=== PATIENT | male | born 1950 | race Two or more races ===

== ENCOUNTER 2024-09-24 09:25 | Emergency (ER) | payer OTHER, SELFPAY ==
--- NOTE | 2024-09-24 | XR_ITS ---
Examination: MRI brain without intravenous contrast. Date and time of exam: September 24, 2024 1320 hours INDICATIONS: Dizziness beginning 8:00 AM this morning Technique: Multiple axial and sagittal images of the brain obtained. Siemens high-resolution 1.5 Blessing short bore scanners utilized. Sagittal sections, T1-weighted, TR 500, TE 14, are performed. Axial sections proton-density and T2-weighted have been obtained. Inversion recovery axial images, TR 9, 260, TE 111, TI 2500. Diffusion weighted images, axial sections, TR 4800, TE 128, B value 1000 Axial sections, ADC map, TR 4800, TE 128 Findings: Enlargement of the sella turcica is not present. The optic chiasm and infundibular are not remarkable. Prepontine and interpeduncular cisterns are not enlarged. There is no localized enlargement of the medulla or amalia. Fourth ventricle and cerebellar tonsils appear normal in position. No subacute area of hemorrhage density is seen. Mass in the cerebellopontine angle region is not evident. Globes symmetrical. Orbital musculature including medial lateral rectus muscles do not exhibit abnormality. Diffusion-weighted images demonstrate no focus of restricted diffusion. Increased white matter signal mild Mass effect upon the ventricular system is not identified. Impression: Negative for acute hemorrhage mass effect or midline shift No acute infarct Mild chronic microvascular white matter change
[2024-09-24 09:27] VITALS: BP 174/96; PULSE 64; RESP 19; TEMP 36.5; O2SAT 95; BMI 29.0
--- NOTE | 2024-09-24 09:33 | EKG_ITS ---
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
[2024-09-24 09:35] VITALS: BP 171/93; PULSE 68; RESP 14; O2SAT 99
--- NOTE | 2024-09-24 09:35 | PC.NURSE ---
SUDDEN ONSET DIZZINESS AFTER EATING AT 0800. WENT TO PMD APPOINTMENT AND PMD CALLED 911
[2024-09-24 09:37] VITALS: PULSE 64; O2SAT 98
--- NOTE | 2024-09-24 12:05 | EDNOTE_ITS ---
ED General RME/HPI General Chief complaint: Dizziness Stated complaint: DIZZINESS SINCE 0800 WHEN MOVES Arrival date/time: 09/24/24 09:25 RME / HPI RME / HPI narrative: A 74-year-old male with past medical history of hypertension, diabetes type II gli-pcgxhtf-uwshnpzyy on metformin, and hyperlipidemia presented in the ED of [facility] with chief complaint of dizziness since 8:00 am 09/24/2024. His dizziness started when he attempted to get up from his living room chair. He felt himself spinning. However, denies that the room is spinning. He said that he went to see his PCP who recommended him to come into the ED for further management. No tinnitus was noted. Patient also endorses nausea but denies any vomiting. Patient states that he has a dry cough, but he feels it is associated with his lisinopril. Every time he takes Lisinopril, his cough starts. Patient denies headache, fever, chills, chest pain, palpitation, shortness of breath, vomiting, diarrhea, or constipation. Allergies: None. Medications: Metformin, atorvastatin, lisinopril. Surgical history: Prostatectomy, hernia repair, and bilateral knee repair. Social history: 40-year history of drinking alcohol though not daily- in the past. Denies using alcohol anymore, or illicit drug use. MD complaint: dizziness Onset (ago): hour(s) Relieving factors: immobilization Exacerbating factors: movement Related Data Home Medications ?Medication ?Instructions ?Recorded ?Confirmed atorvastatin 10 mg tablet 20 mg PO HS 11/27/17 05/06/24 metformin 500 mg tablet 500 mg PO QDAY 11/27/17 05/06/24 lisinopril 2.5 mg tablet 2.5 mg PO QDAY 07/26/18 05/06/24 Previous Rx's ?Medication ?Instructions ?Recorded meclizine 25 mg tablet 25 mg PO BID PRN dizziness 5 days 09/24/24 #10 tabs meclizine 25 mg tablet 25 mg PO BID PRN dizziness 5 days 09/24/24 #10 tabs Allergies Allergy/AdvReac Type Severity Reaction Status Date / Time No Known Allergies Allergy Verified 05/06/24 12:28 Review of Systems Review of Systems Systems Reviewed: All systems reviewed, normal except as documented Past Medical History Past Medical History NEUROLOGIC: Negative Neurological Disorders or Seizures CARDIAC: Positive Cardiac Disorders; Negative Congestive Heart Failure RESPIRATORY: Negative Respiratory Disorders, Chronic Obstructive Pulmonary Disease (COPD) or Asthma GASTROINTESTINAL: Positive Gastrointestinal Disorders and Ulcer GENITOURINARY: Positive Genitourinary Disorders (URINARY RETENTION), Kidney Stones and Benign Prostatic Hyperplasia; Negative Renal Disease MUSCULOSKELETAL: Positive Musculoskeletal Disorders and Arthritis ENT: Positive Cataracts (OS) ENDOCRINE: Positive Endocrine Disorders and Diabetes Mellitus Type 2; Negative Diabetes Mellitus Type 1 HEMATOLOGIC: Negative Blood Disorders or Sickle Cell Disease OTHER HISTORY: Negative Autoimmune Disease, Falls, Blood Transfusions, Blood Transfusion Reaction or Anesthesia Reactions Family History FAMILY HISTORY: Positive Family Respiratory Disorders and Family Cardiac Disorders; Negative Family Anesthesia Reaction Surgical History SURGICAL: Positive Vasectomy Social History SMOKING STATUS: Never smoker Travel History EBOLA RISK: No ED Exam Narrative Physical exam: Constitutional: well-developed, well-nourished, in no acute distress, lying in bed. HEENT: NCAT, EOMI, reactive round pupils b/l, patent nares b/l, moist mucous membranes, on room Lung: CTAB, no wheezing, no rhonchi, no crackles. Heart: Regular S1S2, no murmurs, gallops, or rubs Abdomen: Soft, non-distended, non-tender, bowel sounds present throughout. Extremities: No cyanosis, clubbing, no edema of b/l legs, LE pulses present b/l Neurologic: No focal sensory or motor deficits noted, AOx3, appropriate affect Skin: Warm, dry, no lesions or rashes noted Course Quality Measures none Orders Category Date Time Status EKG (ED ONLY) *Do not use* NOW Care 09/24/24 09:33 Completed MRI Screening NOW Care 09/24/24 12:19 Completed EKG (ED Only) Stat Exams 09/24/24 09:33 Draft EKG (ED Only) Stat Exams 09/24/24 14:13 Stop Req MR head/brain wo con Stat Exams 09/24/24 Completed CBC Stat Lab 09/24/24 14:39 Completed CMP [Comprehensive Metabolic Panel] Stat Lab 09/24/24 14:39 Completed Meclizine HCl [Antivert] Med 09/24/24 14:18 Discontinued 50 mg PO X1 ONE Vital Signs Vital signs: Vital Signs Temperature 97.7 F 09/24/24 09:27 Pulse Rate 64 09/24/24 09:27 Respiratory Rate 19 12/04/24 09:27 Blood Pressure 174/96 H 09/24/24 09:27 Pulse Oximetry (%) 95 09/24/24 09:27 Oxygen Delivery Method Room Air 09/24/24 09:27 MDM Patient data External records reviewed:: [facility] previous records Clinical information provided by:: patient Social determinants that could affect healthcare access:: none Patient has the following chronic illnesses:: H/o Hypertension, diabetes mellitus type 2, hyperlipidemia How is presenting disease/condition affected by chronic disease/condition?: u neffected by Evaluation data The following diagnostics were reviewed and interpreted by me:: lab results and radiology exam(s) Lab and/or radiology exams considered but not ordered:: None Interpretation Summary: Brain MRI showed negative for acute hemorrhage mass effect or midline shift, no acute infarct, and mild chronic microvascular white matter change. EKG sinus rhythm heart rate 60. Medications Medications considered but not ordered:: None Medication administrations:: Medication Administration History Discontinued Medications Meclizine HCl (Meclizine Hcl 25 Mg Tablet) 50 mg PO X1 ONE Stop: 09/24/24 14:19 Last Admin: 09/24/24 14:53 Dose: 50 mg Documented By: NADINE meclizine Consultations Consultation(s) initiated? (list below): No Diagnosis Differential Diagnosis ED Complaint MDM: orthostatic hypotension Most likely diagnosis given after review of the tests above:: BPPV Admission Indicated Admission indicated?: not indicated Explain why admission is indicated or not indicated:: Patient presents with BPPV,which can be managed safely at home. Admission Request Was there a request for admission?: No Disposition Plan Disposition Plan: Discharge Discharge Attestation Discharge Attestation: The patient and all family members were given an opportunity to ask questions and understood the discharge instructions. Discharge instructions specifically effects, indications for sooner follow up or return to the emergency department, and the expected course of current diagnosis. Patient condition: Stable Medical Decision Making MDM Narrative MDM Narrative: 74-year-old male with past medical history of hypertension, diabetes type II omy-vxuwxlk-oxzjbbmna on metformin, and hyperlipidemia presented in the ED of [facility] with chief complaint of dizziness since 8:00 am 09/24/2024. His dizziness started when he attempted to get up from his living room chair. He felt himself spinning. No tinnitis noted, but patient likely has BPPV in setting of peripheral manifestations on physical exam. Patient is able to walk in a straight. Negative for broad-based gait. Subjectively, patient presented with likely central vertigo but on physical exam-- peripheral vertigo more likely. MRI negative for acute hemorrhage mass effect or midline shift, no acute infarct. Will give meclizine and if patient improves, he will be discharged. Differential Diagnosis Differential Diagnosis: orthostatic hypotension Medical Records Medical records reviewed: Yes I reviewed the patient's medical records. Lab Data Lab results reviewed: Yes I reviewed the patient's lab results. 09/24/24 14:39 09/24/24 14:39 Labs: Lab Results 09/24/24 Range/Units 14:39 WBC 8.0 (3.8-10.6) Thou/mm3 RBC 4.94 (4.50-5.90) Miln/mm3 Hgb 15.8 (13.5-16.0) g/dL Hct 45.0 (41.0-53.0) % MCV 91 (80-100) fL MCH 32.0 (25.0-35.0) pg MCHC 35.1 (31.0-37.0) g/dl RDW Std Deviation 43.0 (35.1-43.9) fL Plt Count 207 (140-440) Thou/mm3 Neut % (Auto) 56 (37-80) % Lymph % (Auto) 33 (10-50) % [place] % (Auto) 8 (0-12) % Eos % (Auto) 3 (0-10) % Baso % (Auto) 1 (0-2.5) % Neut # (Auto) 4.4 (1.8-7.7) Thou/mm3 Lymph # (Auto) 2.6 (1.0-4.8) Thou/mm3 [place] # (Auto) 0.6 (0.0-0.8) Thou/mm3 Eos # (Auto) 0.2 (0.0-0.5) Thou/mm3 Baso # (Auto) 0.1 (0.0-0.2) Thou/mm3 Immature Gran # (Auto) 0.01 H (0.00-0.00) Thou/mm3 Absolute Nucleated RBC 0.00 (0.00-0.00) Thou/mm3 Immature Gran % 0 (0-0) % Nucleated RBC % 0 (0) /100 WBC Sodium 142 (136-145) mMol/L Potassium 3.7 (3.4-5.1) mMol/L Chloride 107 (98-107) mMol/L Carbon Dioxide 28.8 (20.0-31.0) mMol/L Anion Gap 6 L (7-16) BUN 9 (9-23) mg/dL Creatinine 0.8 (0.6-1.3) mg/dL Estim Creat Clear Calc 82.5 (>60) mL/min eGFR > 60 (60 - ) See Note BUN/Creatinine Ratio 11 L (12-20) Ratio Glucose 94 (74-106) mg/dL Calculated Osmolality 281 (275-295) Calcium 9.8 (8.3-10.6) mg/dL Corrected Calcium 9.8 (8.5-10.1) mg/dL Total Bilirubin 0.6 (0.3-1.2) mg/dL AST 21 (0-34) U/L ALT 30 (10-49) U/L Alkaline Phosphatase 71 (46-116) U/L Total Protein 6.9 (5.7-8.2) gm/dL Albumin 4.2 (3.4-4.8) gm/dL Globulin 2.7 (2.3-3.5) gm/dL Albumin/Globulin Ratio 1.6 (1.2-2.2) Radiology Data Radiology results reviewed: Yes I reviewed the patient's radiology results. Radiology results narrative: Brain MRI showed negative for acute hemorrhage mass effect or midline shift, no acute infarct, and mild chronic microvascular white matter change. Discharge Plan Plan Patient Disposition: HOME (Self Care) Patient condition on transfer: Stable Health Concerns: Please take meclizine 25mg twice daily for dizziness. Please continue home medications. If symptoms worsen, please return to the ED. Prescriptions/Referrals Prescriptions/Med Rec: New meclizine 25 mg tablet 25 mg PO BID PRN (Reason: dizziness) 5 Days Qty: 10 0RF meclizine 25 mg tablet 25 mg PO BID PRN (Reason: dizziness) 5 Days Qty: 10 0RF No Action metformin 500 mg tablet 500 mg PO QDAY atorvastatin 10 mg tablet 20 mg PO HS lisinopril 2.5 mg Tablet 2.5 mg PO QDAY Referrals: Reza Billy MD [Primary Care Provider] - In 1 week Problem List Clinical Impression: Benign paroxysmal positional vertigo Patient/Caregiver Discharge Instructions Print Language: Tajik Stand Alone Forms: Phyllis Award Info., Patient Portal Info Letter MD Attestation MD Attestation The patient was seen by the PGY-2. I, the supervising physician, also encountered and examined the patient while remaining present during the entire ER visit. I was available for consultation as needed. Working with the PGY 2, management, treatment plan, and documentation were formulated. I agree with the plan and documentation.
[2024-09-24 13:01] VITALS: BP 126/76; PULSE 63; RESP 14; O2SAT 96
--- NOTE | 2024-09-24 13:10 | PC.NURSE ---
MRI check list completed, called MRI to last picker patient for exam
[2024-09-24 14:50] LABS: Basophils # (Auto) 0.1 Thou/mm3 (0.0-0.2); Basophils % (Auto) 1 % (0-2.5); Eosinophils # (Auto) 0.2 Thou/mm3 (0.0-0.5); Eosinophils % (Auto) 3 % (0-10); Hemoglobin 15.8 g/dL (13.5-16.0); Immature Granulocytes % (Auto) 0 % (0-0); Immature Granulocytes Auto 0.01 Thou/mm3 (0.00-0.00); Lymphocytes # (Auto) 2.6 Thou/mm3 (1.0-4.8); Lymphocytes % (Auto) 33 % (10-50); Mean Corpuscular HGB Conc 35.1 g/dl (31.0-37.0); Mean Corpuscular Volume 91 fL (80-100); Monocytes # (Auto) 0.6 Thou/mm3 (0.0-0.8); Monocytes % (Auto) 8 % (0-12); Neutrophils # (Auto) 4.4 Thou/mm3 (1.8-7.7); Neutrophils % (Auto) 56 % (37-80); Nucleated Red Blood Cell % 0 /100 WBC (0); Platelet Count 207 Thou/mm3 (140-440); Red Blood Count 4.94 Miln/mm3 (4.50-5.90)
[2024-09-24] MEDS: MECLIZINE HCL 25 MG TABLET 50 MG PO (14:53)
[2024-09-24 14:56] VITALS: BP 143/78; PULSE 58; RESP 16; O2SAT 97
[2024-09-24 15:10] LABS: Alanine Aminotransferase 30 U/L (10-49); Albumin, Serum 4.2 gm/dL (3.4-4.8); Albumin/Globulin Ratio 1.6 (1.2-2.2); Alkaline Phosphatase 71 U/L (46-116); Anion Gap 6 (7-16); Aspartate Amino Transferase 21 U/L (0-34); BUN/Creatinine Ratio 11 Ratio (12-20); Bilirubin,Total 0.6 mg/dL (0.3-1.2); Blood Urea Nitrogen 9 mg/dL (9-23); Calcium 9.8 mg/dL (8.3-10.6); Calcium (Corrected) 9.8 mg/dL (8.5-10.1); Carbon Dioxide 28.8 mMol/L (20.0-31.0); Chloride 107 mMol/L (98-107); Creatinine (Component) 0.8 mg/dL (0.6-1.3); Estimated Creatinine Clearance 82.5 mL/min (>60); Globulin 2.7 gm/dL (2.3-3.5); Glucose 94 mg/dL (74-106); Osmolality,Calculated 281 (275-295); Potassium 3.7 mMol/L (3.4-5.1); Sodium 142 mMol/L (136-145); Total Protein 6.9 gm/dL (5.7-8.2); eGFR > 60 See Note
[2024-09-24 17:00] VITALS: BP 120/77; PULSE 60; RESP 18; TEMP 36.6; O2SAT 95
== END 2024-09-24 17:00 | disposition home or self-care (01) ==
PROVIDERS: Emergency Provider Emergency Medicine; PCP Family Medicine
DX: H81.10 Benign paroxysmal vertigo, unspecified ear (principal); R90.82 White matter disease, unspecified; I10 Essential (primary) hypertension
CPT/HCPCS: 36415; 70551; 80053; 85025; 93005; 99284; A9270

== ENCOUNTER → 2025-03-23 | Outpatient (CLI) | payer OTHER, SELFPAY ==
[2025-03-23 08:46] LABS: Prostate Specific Antigen 0.51 ng/mL (0-4.00)
[2025-03-23 08:57] LABS: Alanine Aminotransferase 31 U/L (10-49); Albumin, Serum 4.4 gm/dL (3.4-4.8); Albumin/Globulin Ratio 1.9 (1.2-2.2); Alkaline Phosphatase 72 U/L (46-116); Anion Gap 9 (7-16); Aspartate Amino Transferase 26 U/L (0-34); BUN/Creatinine Ratio 15 Ratio (12-20); Bilirubin,Total 0.9 mg/dL (0.3-1.2); Blood Urea Nitrogen 15 mg/dL (9-23); Carbon Dioxide 27.6 mMol/L (20.0-31.0); Cardiac Risk Estimate 3.1 RATIO (4.0-6.7); Chloride 107 mMol/L (98-107); Cholesterol 163 mg/dL (132-200); Globulin 2.3 gm/dL (2.3-3.5); Glucose 145 mg/dL (74-106); HDL Cholesterol 52 mg/dL (40-60); LDL Cholesterol,Calculated 90 mg/dL (0-130); Osmolality,Calculated 290 (275-295); Potassium 3.8 mMol/L (3.4-5.1); Sodium 144 mMol/L (136-145); Total Protein 6.7 gm/dL (5.7-8.2); Triglycerides 106 mg/dL (30-150); eGFR > 60 See Note
[2025-03-23 09:19] LABS: Creatinine MALB Rnd Ur 197 mg/dL (30-125); Microalbumin Creat Ratio 8 mg/gCrea (<30); Microalbumin, Random Urine 16 mg/L (0-300)
[2025-03-23 09:53] LABS: Glucose Estimated Average 146 mg/dL (80-131); Hemoglobin A1C 6.7 % Hgb (4.8-6.0)
== END | disposition home or self-care (01) ==
PROVIDERS: PCP Family Medicine; Referring Provider Family Medicine; Visit Provider Family Medicine
DX: E11.29 Type 2 diabetes mellitus with other diabetic kidney complication (principal); Z12.5 Encounter for screening for malignant neoplasm of prostate
CPT/HCPCS: 36415; 80053; 80061; 82043; 82570; 83036; 84153